=== PATIENT | female | born 1975 | race Caucasian/White ===

== ENCOUNTER 2022-12-08 09:23 | Emergency (ER) | payer MEDICAID ==
[~2022-12-08] VITALS: Ht 170.2 cm; Wt 59.0 kg
[2022-12-08 09:34] VITALS: BP 125/73
--- NOTE | 2022-12-08 09:34 | NUR ---
pt swabbed for covid spencer at this time
--- NOTE | 2022-12-08 09:46 | NUR ---
47 y/o female bib self from home, c/o runny nose and congestion for 3 days. pt states she has other sick contacts with same s/s at home. denies cp, sob, fever, chills, or sob. a&ox4, ambulates with steady gait. lungs clear bl. pmh: denies nka med: denies
[2022-12-08 10:24] VITALS: BP 125/73
--- NOTE | 2022-12-08 10:24 | NUR ---
Patient discharged with v/s stable. Written and verbal after care instructions given and explained. Patient verbalized understanding. Ambulatory with steady gait. All questions addressed prior to discharge. Advised to follow up with PMD.
== END 2022-12-08 10:24 | disposition home or self-care (01) ==
LOC: MED 09:23
DX: J06.9 Acute upper respiratory infection, unspecified (principal); Z20.822 Contact with and (suspected) exposure to COVID-19
CPT/HCPCS: 99283